=== PATIENT | female | born 1955 | race Caucasian/White ===

== ENCOUNTER 2025-06-25 06:06 | Observation (INO) | payer MEDICARE, SELFPAY ==
[2025-06-25] VITALS (17 sets, daily range): BP systolic 91–141; BP diastolic 52–122; PULSE 76–80; O2SAT 97; BMI 33.9; BMI 32.7
--- NOTE | 2025-06-25 03:44 | ED.GENMED ---
History of Present Illness
General
Chief Complaint: Abdominal Symptoms
Source: patient
Exam Limitations: none
Time Seen by Provider: 06/25/25 03:41
Nursing documentation reviewed up to this point in time: agreed with
History of Present Illness
History of Present Illness:
Note:
CHIEF COMPLAINT(S)
Dizziness, nausea, and vomiting.
HISTORY OF PRESENT ILLNESS
The patient is a 70-year-old female with past medical history of A-fib on Eliquis who presented with dizziness, nausea, and vomiting. She has take flecainide and metoprolol but she did not take this this evening. The symptoms began approximately
two hours ago when the patient got up from bed to go to the bathroom. He reported feeling unsteady while walking to the bathroom, and after urinating, the room started to spin, causing him to sit down and call his . The patient experienced
nausea and later vomited once when rolling over. She continued to experience dizziness. She not lose consciousness. He mentioned that his pulse felt normal, and his noted the pulse was in the 60s and regular despite history of being in
atrial fibrillation. The patient did not take his prescribed medications this evening, which include metoprolol, Eliquis, flecainide, and Synthroid. Patient does have a loop recorder in place and is unable to feel when she is in A-fib. She denies
to palpitations or chest pain. The patient reported no chest pain, shortness of breath, neck pain. She does note a dull ache in the back of her head. She suspects dehydration as a contributing factor due to a day of gardening outside in the heat
without sufficient fluid intake. She is never high thing like this before. She has no history of vertigo. She reports that at rest, she feels weak but more comfortable but when she tries to move or stand up, the symptoms return.
PAST MEDICAL AND SURGICAL HISTORY
The patient has a history of atrial fibrillation and Graves disease.
CHRONIC MEDICAL CONDITIONS SIGNIFICANTLY AFFECTING CARE
- Atrial Fibrillation
- Graves Disease
PHYSICAL EXAM
General: The patient is alert and in no acute distress.
Skin: Warm and dry.
Head: Normocephalic, atraumatic.
Neck: Supple, trachea midline.
Eye, Ears, Nose, Mouth, and Throat: Oral mucosa moist.
Cardiovascular: Heart rate irregularly irregular, normal peripheral perfusion, no edema observed.
Respiratory: Respirations are non-labored.
Gastrointestinal: Abdomen nondistended, non-tender to palpation.
Musculoskeletal: Normal range of motion, normal strength; slight shaking noted upon standing.
Neurological: Alert and oriented to person, place, time, and situation. No focal neurological deficit observed. Normal dzhtma-ny-agjh, bhgu-jm-ukbi. Unable to assess gait due to severity of symptoms. NIHSS of 0.
Psychiatric: Cooperative, appropriate mood and affect.
PLAN
- Administer intravenous fluids for suspected dehydration.
- Administer meclizine for vertigo management.
-Zofran
- Perform an electrocardiogram and evaluate the loop recorder to assess cardiac status.
- Obtain a computed tomography scan of the head
- Monitor the patient�s response to treatment and re-evaluate symptoms and stability.
DIFFERENTIAL DIAGNOSIS
The Differential Diagnosis includes, in no particular order and is not limited to:
1. Benign Paroxysmal Positional Vertigo
2. Labyrinthitis
3. M�ni�res Disease
4. Dehydration-induced dizziness
5. Cerebrovascular Accident or Transient Ischemic Attack
6. Cardiac arrhythmias due to atrial fibrillation
7. Orthostatic hypotension
8. Vestibular neuritis
9. Acute labyrinthine dysfunction
10. Thyrotoxic crisis due to Graves disease
CHART REVIEW
No prior ER physician documentation to review, no discharge summaries to review
No external medical summary for review
MDM/Disposition
The patient is a 70-year-old female with past medical history of A-fib on Eliquis who presented with dizziness, nausea, and vomiting. She has take flecainide and metoprolol but she did not take this this evening. The symptoms began approximately
two hours ago when the patient got up from bed to go to the bathroom. Symptoms persisted even after lying down. She has never had anything like this before. She also notes a dull ache in the back of her head. Physical exam she is well-appearing
no distress. When I attempt to have patient move or stand up, her symptoms of dizziness returned although no nystagmus is noted on exam. She has no focal neurologic deficits. She has normal finger-nose cjlh-je-veob, no cerebellar signs. She was
treated with Zofran and meclizine. From the CAT scan. Labs reviewed, CBC and CMP unremarkable. She does have elevated BUN to creatinine ratio suggesting dehydration she is given IV fluids. CT scan of the head normal. EKG shows A-fib with RVR
although patient states that she is never been symptomatic with this. On reassessment, patient still symptomatic and when he attempted to get patient up and walking, she is unable to walk due to her degree of weakness and dizziness. Will admit for
intractable dizziness for continued symptomatic management and potential neurologic evaluation/MRI. Patient referred for admission. Case discussed with ED attending.
Review of Systems
Review of Systems
All Other Systems: ROS reviewed and negative except as documented in HPI and ROS
Phy Exam
Physical Exam
Physical Exam:
see hpi
Course
Orders/Labs/Results
Orders:
Orders
06/25/25
Electrocardiogram (*1) Stat
Reason for Study: Chest Pain
Comment: DONE
CT Head W/o Iv Contrast Urgent
Reason For Exam: vertigo
06/25/25 01:40
Complete Blood Count/With Diff Urgent
Comprehensive Metabolic Panel Urgent
Lipase Urgent
06/25/25 03:49
Diltiazem HCl [Cardizem] 10 mg IV NOW STA
06/25/25 03:50
Diltiazem HCl [Cardizem] 5 mg IV NOW STA
06/25/25 03:52
Interrogate Pacemaker- Treatment ONCE
06/25/25 04:15
Diltiazem 125 mg/125 ml Nss [Cardizem] 125 mg in 125 ml IV PER PROTOCOL
Initial dose in mg/hr, then titrate:: 5
Titrate to keep:: Heart rate 80-100 bpm
Titrate by mg/hr:: 5 mg/hr
Frequency of titrations (minutes):: 15
Maximum dose in mg/hr:: 15
06/25/25 05:50
Admit/Transfer Patient As Directed
Co-Sign Provider:
Level of Care: Observation services
Assign to:: Telemetry
Physician / Group: kojo
Diagnosis: presyncope
Reason for Telemetry: Arrhythmia
Date to Stop Telemetry: 06/28/25
Time to Stop Telemetry: 11:00
Reason for Hospitalization: presyncope
06/25/25 05:51
PRN Pain Medication Management As Directed
May give lesser potent ordered pain med per pt: Yes
preference::
Protocol:: Medication orders for pain may be administered in a
manner that supports deferring to patient preference
when the pt is:
- Requesting an ordered lesser potent pain medication.
Least to most potent pain medications are defined
as: acetaminophen < NSAID < tramadol < opioids
(morphine, oxycodone, hydromorphone).
- Requesting a lesser dose of the same medication IF
ORDERED.
- Requesting a less intrusive route of administration
if both routes are prescribed by the provider (PO <
IV).
06/25/25 05:52
Code Status As Directed
Resuscitation Status: Full Code
06/25/25 05:55
0.9% Sodium Chloride 1000 ml [Nss] 1,000 ml IV BOLUS
06/25/25 05:56
EKG [Electrocardiogram (*1)] Urgent
Reason for Study: Atrial Fibrillation
Other Reason for Exam: CONVERTED
EKG- Treatment ONCE
06/28/25 11:00
DC Protocol for Telemetry ONCE
Abnormal Lab Results
06/25/25
01:40
MCH 33.3 H pg
(27.0-31.0)
MPV 11.2 H fL
(7.4-10.4)
BUN 21 H mg/dl
(7-17)
Glucose 104 H mg/dl
(70-99)
06/25/25 01:40
06/25/25 01:40
Vital Signs
Initial and Last Documented VS:
Initial Vital Signs
Pulse Resp Pulse Ox
113 21 98
06/25/25 03:54 06/25/25 03:54 06/25/25 03:54
Last Documented Vital Signs
Pulse Resp BP Pulse Ox
66 15 100/59 94
06/25/25 06:30 06/25/25 06:30 06/25/25 06:30 06/25/25 06:30
*Pulse Oximetry
Patient hypoxic: no
*Critical Care Note
Total Time (30-74mins, 75-104mins- exclusive of procedures): Not Applicable
ED Attending Note
-
Portions of this chart may have been created with voice recognition software.� Occasional wrong word or��sound alike� substitutions may have occurred due to the inherent limitations of voice recognition software.
Discharge Plan
Departure
Patient Disposition: Admit
Date of Disposition: 06/25/25
Time of Disposition: 05:23
Admit to: Med/Surg
Presentation/result/management discussed w/ accepting MD/DO: Hospitalist
Patient with high blood pressure during this ER visit?: Yes
Condition: Fair
Discharge Problem:
Dizziness, Atrial fibrillation with rapid ventricular response
Interventions
Interventions:
*Risk Screen - Suicide Last Done: 06/25/25 05:03
*General Assessment Last Done: 06/25/25 05:03
*ED- Fall Risk Assessment Last Done: 06/25/25 05:03
*ED COVID-19 Vaccine History Last Done: 06/25/25 05:03
SM-Ejetnr-Mubfyznwwf Assessment Last Done: 06/25/25 04:12
[2025-06-25 03:47] LABS: Hematocrit 45.1 % (37.0-47.0); Hemoglobin 15.8 g/dL (12.0-16.0); Mean Corp Hgb Conc. 35.0 g/dL (33.0-37.0); Mean Corpuscular Volume 94.9 fL (81.0-99.0); Nucleated Red Blood Cells % 0 %; Platelet Count 184 10^3/uL (130-400); Red Cell Dist. Width 13.6 % (11.5-14.5)
[2025-06-25 03:48] LABS: ALT (SGPT) 20 U/L (0-35); AST (SGOT) 23 U/L (14-36); Albumin 4.7 g/dl (3.5-5.0); Alkaline Phosphatase 55 U/L (38-126); Blood Urea Nitrogen 21 mg/dl (7-17); Calcium 10.2 mg/dl (8.4-10.2); Carbon Dioxide 24 mmol/L (22-30); Chloride 106 mmol/L (98-107); Glucose 104 mg/dl (70-99); Lipase 148 U/L (23-300); Potassium 3.7 mmol/L (3.5-5.1); Sodium 139 mmol/L (135-145); Total Protein 7.5 g/dl (6.3-8.2); eGFR > 60.00
--- NOTE | 2025-06-25 03:50 | DOWNTIME ---
There was a [employer] Client [employer] Tester Downtime on 06/25/2025 from 0100 to 06/25/2025 at 0235. Downtime documentation of patient's care, including medication administrations, has been reconciled in the electronic record per guidelines. Refer to the
patient's paper chart under the miscellaneous tab to see printed paper medication records and downtime forms.
[2025-06-25] MEDS: CARDIZEM 5 MG IV (04:47)
[2025-06-25] MEDS: CARDIZEM 125 IV (04:49)
--- NOTE | 2025-06-25 05:43 | HPS.HSE ---
Family Physician
-
Family Physician: SAGAR FERNANDEZ
Chief Complaint
-
presyncope
History of Present Illness
This is a 70-year-old female with past medical history significant for atrial fibrillation on Eliquis, Graves' disease presenting to the emergency department with a presyncopal episode at home.
She was up in the middle of the night and immediately felt dizzy when she stood up. She walked to the bathroom and then sat down. After sitting down on the commode and reaching out for a 20 trip she continued to feel dizzy and then became
nauseous. She felt afraid to get up when she was placed on the floor by spouse. She remained nauseous and spouse called EMS. When EMS arrived patient had 1 episode of nonbloody unknown bilious emesis. She reports a dull ache in the back of her
head. She did not fall or smacked her head. She denies having any chest pain. She denies palpitations. She denies any recent episodes of diarrhea, melena, hematochezia. She denies having any recent cough cold fevers or chills. She reports that
she takes flecainide and metoprolol which she did not take tonight.
On arrival in the emergency department he was found to be in atrial fibrillation with a rapid response in the 1 teens. Blood pressure was 141/120 and oxygen saturation was 96% on room air.
ECG shows atrial fibrillation at rate of 107. Electrolytes, BUN and creatinine were all normal. CBC was unremarkable. LFTs were normal.
CT of the head was unremarkable.
Medical History
Past Medical History
Past Medical History: Reports Arrhythmia (Atrial fibrillation), Cancer, Hypothyroidism and Other (Graves' disease)
Past Surgical History: Reports Other
Social History
Tobacco: Non-smoker
Alcohol: None
Drug: None
Personal: Single
Family History
Family History: Not pertinent
Allergies / Home Medications
Allergies reflects when Allergies were last updated in [facility].
Home Medications with original date entered in [facility]
Allergy/Medication List:
Allergies
Allergy/AdvReac Type Severity Reaction Status Date / Time
amoxicillin Allergy Rash Verified 06/25/25 04:06
cephalexin (From Keflex) Allergy Rash Verified 06/25/25 04:06
vancomycin Allergy Unknown Verified 06/25/25 04:06
Home Medications
apixaban 5 mg tablet (Eliquis) 5 mg PO BID 06/25/25
flecainide 100 mg tablet 100 mg PO Q12H 06/25/25
levothyroxine 112 mcg tablet (Synthroid) 112 mcg PO MOWEFR 06/25/25
levothyroxine 125 mcg tablet (Synthroid) 125 mcg PO USEASDIRECTD TUTHSASU 06/25/25
metoprolol tartrate 25 mg tablet 37.5 mg PO BID 06/25/25
multivit with minerals-iron 18 mg-folic ac 400 mcg-vit K 25 mcg tablet (Adults Multivitamin) 1 tab PO DAILY 06/25/25
tirzepatide (weight loss) 5 mg/0.5 mL subcutaneous solution (Zepbound) 5 mg SC QWEEK 06/25/25
Review of Systems
-
Constitutional: Reports No Symptoms
EENT: Reports No Symptoms
Respiratory: Reports No Symptoms
Cardiac: Reports No Symptoms
Abdomen/GI: Reports Nausea and Vomiting
: Reports No Symptoms
Musculoskeletal: Reports No Symptoms
Skin: Reports No Symptoms
Neurological: Reports Dizzy
Endocrine: Reports No Symptoms
Hematologic/Lymphatic: Reports No Symptoms
Psych: Reports No Symptoms
Physical Exam
Vital Signs
Vital Signs
Pulse Resp BP Pulse Ox
99 22 141/122 96
06/25/25 05:00 06/25/25 05:00 06/25/25 05:00 06/25/25 05:00
Physical Exam
General: Well Developed, Well Nourished and No Apparent Distress
HEENT: NormoCephalic, Moist mucous membranes and Atraumatic
Respiratory: Clear
Cardiac: S1/S2 and Regular Rhythm; No Murmur or Rub
GI: Soft, Non Tender, Non Distended and Normal Bowel Sounds; No Organomegaly
Rectal: Deferred by Provider
Musculoskeletal: No Clubbing, No Cyanosis and No Edema
Skin: No Rash
Neuro: Nonfocal/grossly intact
Psych: Calm
Laboratory Results
-
06/25/25 01:40
06/25/25 01:40
Laboratory Results
Total Bilirubin 0.8 mg/dl (0.2-1.3) 06/25/25 01:40
AST 23 U/L (14-36) 06/25/25 01:40
ALT 20 U/L (0-35) 06/25/25 01:40
Alkaline Phosphatase 55 U/L (38-126) 06/25/25 01:40
Lipase 148 U/L (23-300) 06/25/25 01:40
Data Reviewed
-
CT Scan: Report Reviewed by me
Medical Tests (Nuc Med, Echo, EKG etc): Image Personally Visualized and interpreted
Old Records: Reviewed
Impression/Plan
-
IMPRESSION:
70-year-old female who who developed a presyncopal episode after standing up in the middle of the night tonight. She arrived in the emergency department atrial fibrillation with RVR. She did not take flecainide or metoprolol tonight. She is
currently with dynamically stable. For the time she gets she continues to feel dizzy. She has no chest pain. Level unremarkable and shows no signs of acute infection. She has no focal deficits. No evidence of fluid or blood loss except some
reduced hydration after walking just on the previous day. She has now converted from the atrial fibrillation to normal sinus rhythm and remains hemodynamically stable.
PLAN:
Presyncope -suspect vertigo versus uncontrolled atrial fibrillation resulting in lightheadedness. Afib now resolved. She does have a loop recorder
-Admit to telemetry obs
-d/c diltiazem drip, continue flecainide and metoprolol for now
- consider device interrogation in am
-Orthostatic vital signs
-Meclizine as needed
-s/p fluid bolus
Hypothyroid
-continue levothyroxine
A-fib
� As above will continue flecainide and beta-fercho
� Continue apixaban
DVT prophylaxis�on apixaban
CODE STATUS�full code
[2025-06-25] MEDS: ELIQUIS 5 MG PO (09:01)
[2025-06-25] MEDS: TAMBOCOR 100 MG PO (09:01)
[2025-06-25] MEDS: THERAGRAN 1 TABLET PO (09:02)
[2025-06-25] MEDS: SYNTHROID 112 MCG PO (09:02)
--- NOTE | 2025-06-25 09:53 | W.PN.HOSP.TC ---
Today's Communication/Plan
-
See plan
Assessment / Plan
Assessment / Plan
Impression
70-year-old female who who developed a presyncopal episode after standing up in the middle of the night tonight. She arrived in the emergency department atrial fibrillation with RVR. She did not take flecainide or metoprolol tonight. She is
currently with dynamically stable. For the time she gets she continues to feel dizzy. She has no chest pain. Level unremarkable and shows no signs of acute infection. She has no focal deficits. No evidence of fluid or blood loss except some
reduced hydration after walking just on the previous day. She has now converted from the atrial fibrillation to normal sinus rhythm and remains hemodynamically stable.
Presyncope.
Atrial fibrillation with rapid ventricular response
Other conditions
Paroxysmal atrial fibrillation
Anticoagulation is Eliquis
History of atrial myxoma removed.
Graves' disease treated with radioactive iodine, iatrogenic hypothyroidism on replacement
GLP-1 agonist therapy with weight loss
Plan:
Presyncope
Suspect dehydration with transient hypotension triggering A-fib with RVR.
Status post IV Cardizem drip back to sinus.
Preadmission regimen Flecainide and metoprolol will be resumed.
Continue anticoagulation with Eliquis.
Patient has a loop recorder.
Will ask cardiology to interrogate.
Iatrogenic hyperthyroidism/Graves' disease
Continue levothyroxine.
Anticipated Discharge: 24 - 48 hours
Subjective/Interval History
-
Date of Service: June 25, 2025
Objective Data
-
Labs:
Laboratory Results
06/25/25
01:40
WBC 6.5
Hgb 15.8
Hct 45.1
Plt Count 184
Sodium 139
Potassium 3.7
Chloride 106
Carbon Dioxide 24
BUN 21 H
Creatinine 0.7
Glucose 104 H
Calcium 10.2
Total Bilirubin 0.8
AST 23
ALT 20
Alkaline Phosphatase 55
Vital Signs:
Vital Signs
Pulse Resp BP Pulse Ox
66 18 102/65 94
06/25/25 08:30 06/25/25 08:30 06/25/25 08:30 06/25/25 08:30
I&O
06/24/25 06/25/25 06/26/25
06:59 06:59 06:59
Output Total 1025 / 1025
Balance -1025 / -1025
Physical Exam
-
General: Well Developed and No Apparent Distress
HEENT: Normocephalic, Atraumatic and Moist Mucous Membranes
Respiratory: Clear to Auscultation
Cardiac: Regular Rhythm and S1/S2; Negative Murmur, Rub or Gallop
GI: Soft, Nontender, Nondistended and Normal Bowel Sounds; Negative Organomegaly
Rectal: Deferred by Provider
Musculoskeletal: No Clubbing, No Cyanosis and No Edema
Skin: Negative Rash
Neuro: Nonfocal/Grossly Intact
--- NOTE | 2025-06-25 11:53 | CM ---
Addendum entered by Adriane Hopkins 06/25/25 12:02:
Anticipated Discharge: 24 - 48 hours
Original Note:
Initial assessment completed in ED at bedside; AGUILAR form explained; form signed @ 1145
Pharmacy verified: [facility]
Family physician verified: Dr. Richard Wang # [phone]
Lives w/ spouse; multilevel home; 2 steps to enter; 14 steps between floors; railings on stairs; 1/2 bath on 1st floor; 2nd floor bathroom has stall shower w/seat
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
No SNF utilization history; Home Health services in 2019 w/
will transport home
PT assessment pending; if home health is recommended; agency options identified; preference is [facility]
Plan: Discharge to home when medically stable; CM will monitor for needs/services
--- NOTE | 2025-06-25 12:35 | PTCARENOTE ---
1158 Pt received from ED via stretcher. AAOX3. Pt ambulated from stretcher to standing scale and then to bathroom with steady gait. No report of distress noted at this time. Pt oriented to staff, environment and call light system. All needs met
--- NOTE | 2025-06-25 14:23 | PTCARENOTE ---
Rn health safety coordinator- Patient's admission assessment completed via phone interview.
--- NOTE | 2025-06-25 14:30 | W.DS.TRANS ---
DC Summary - Control Clerk Repairs
-
Discharge Instructions:
Discharge Diagnosis/Procedures Presyncope
Afib with RVR
Diet Regular
Instructions:
Stand-Alone Forms:
Changes to Home Medications: No
Discharge Medications:
DC Medications w/original date entered in [facility]
apixaban 5 mg tablet (Eliquis) 5 mg PO BID 06/25/25
flecainide 100 mg tablet 100 mg PO Q12H 06/25/25
levothyroxine 112 mcg tablet (Synthroid) 112 mcg PO MOWEFR brand only 06/25/25
levothyroxine 125 mcg tablet (Synthroid) 125 mcg PO SUTUTHSA brand only 06/25/25
metoprolol tartrate 25 mg tablet 37.5 mg PO BID 06/25/25
multivitamin with minerals-folic acid 80 mcg chewable tablet 1 tab PO DAILY 06/25/25
tirzepatide (weight loss) 5 mg/0.5 mL subcutaneous solution (Zepbound) 5 mg SC MO 06/25/25
Home Medication Changes
Pending Results: No
== END 2025-06-25 15:54 | disposition home or self-care (01) ==
LOC: 3 WEST ACU 06:06
PROVIDERS: ADMITTING PHYSICIAN Internal Medicine; ATTENDING PHYSICIAN Internal Medicine; EMERGENCY PHYSICIAN Student in an Organized Health Care Education/Training Program
DX: I48.0 Paroxysmal atrial fibrillation (principal); E05.00 Thyrotoxicosis with diffuse goiter without thyrotoxic crisis or storm; Z79.899 Other long term (current) drug therapy; Z79.01 Long term (current) use of anticoagulants; Z95.0 Presence of cardiac pacemaker
CPT/HCPCS: 70450; 80053; 83690; 85025; 93005; 96374; 96376; 97161; 99285; G0378